=== PATIENT | female | born 1930 | race Caucasian/White ===

== ENCOUNTER 2017-05-23 12:06 | Inpatient (IN) | payer MEDICARE, MEDICAID ==
--- NOTE | 2017-05-22 20:00 | NUR ---
RECEIVED PATIENT ASLEEP IN BED BUT EASILY AROUSABLE. NO S/S OF PAIN OR ACUTE DISTRESS NOTED ON ASSESSMENT.SAFETY AND COMFORT MEASURES IN PLACE. WILL CONTINUE TO MONITOR PATIENT Addendum: 05/24/17 at 0148 by IVORY HERNANDEZ RN CORRECT DATE IS 05/23/17
[~2017-05-23] VITALS: Ht 162.6 cm; Wt 54.4 kg
--- NOTE | 2017-05-23 12:39 | NUR ---
EKG/SALINE LOCK/LABS/CXR DONE, MONITOR SHOWS NSR, PT POSITIONED FOR COMFORT.
[2017-05-23] MEDS ORDERED: GABA300C PO (12:48)
[2017-05-23] MEDS ORDERED: MULT1TAB73 PO (12:48)
[2017-05-23] MEDS ORDERED: DICL100G16 TP (12:48)
[2017-05-23] MEDS ORDERED: POLY17PO4 PO (12:48)
[2017-05-23] MEDS ORDERED: ASPI81TA31 PO (12:48)
[2017-05-23] MEDS ORDERED: LORA-258 PO (12:48)
[2017-05-23] MEDS ORDERED: DOCU100C36 PO (12:48)
[2017-05-23] MEDS ORDERED: DEXT15DR6 EACHEYE (12:48)
[2017-05-23] MEDS ORDERED: METO25TA6 PO (12:48)
[2017-05-23] MEDS ORDERED: LIDOCAINE OINT 5% TOP (12:48)
[2017-05-23] MEDS ORDERED: HYDR-3326 PO (12:48)
[2017-05-23] MEDS ORDERED: DONE10TA44 PO (12:48)
[2017-05-23] MEDS ORDERED: ACET-2154 PO ×2 (12:48)
[2017-05-23 13:01] LABS: BASOPHILS # (AUTO) 0.1 K/uL (0.0-8.0); BASOPHILS % (AUTO) 0.7 % (0.0-2.0); EOSINOPHILS # (AUTO) 0.1 K/uL (0.0-0.7); EOSINOPHILS % (AUTO) 0.6 % (0.0-7.0); HEMATOCRIT 46.8 % (31.2-41.9); HEMOGLOBIN 15.2 g/dL (10.9-14.3); LYMPHOCYTES # (AUTO) 2.2 K/uL (20.0-40.0); LYMPHOCYTES % (AUTO) 16.8 % (20.5-51.5); MEAN CORPUSCULAR HEMOGLOBIN 31.8 uug (24.7-32.8); MEAN CORPUSCULAR HGB CONC 32 g/dL (32.3-35.6); MEAN CORPUSCULAR VOLUME 98.1 fL (75.5-95.3); MONOCYTES # (AUTO) 0.7 K/uL (2.0-10.0); MONOCYTES % (AUTO) 5.6 % (0.0-11.0); NEUTROPHILS % (AUTO) 76.3 % (38.5-71.5); PLATELET COUNT (AUTO) 197 K/uL (179-408); RED BLOOD CELL COUNT(AUTO) 4.78 MIL/uL (3.63-4.92); WHITE BLOOD COUNT (AUTO) 13.1 K/uL (3.8-11.8)
[2017-05-23 13:15] LABS: ALANINE AMINOTRANSFERASE 42 U/L (14-59); ALKALINE PHOSPHATASE 137 U/L (50-136); ASPARTATE AMINOTRANSFERASE 23 U/L (15-37); BILIRUBIN,DIRECT 0.1 mg/dL (0.0-0.2); BILIRUBIN,TOTAL 0.5 mg/dL (0.2-1.0); CARBON DIOXIDE 29 mmol/L (21-32); CHLORIDE 122 mmol/L (98-107); GLUCOSE 119 mg/dL (74-106); LIPASE 1386 U/L (73-393); POTASSIUM 3.8 mmol/L (3.5-5.1); TOTAL PROTEIN, SERUM 8.3 g/dL (6.4-8.2); UREA NITROGEN, BLOOD 47 mg/dL (7-18)
[2017-05-23] MEDS ORDERED: IV D5W 1000ML 1,000 ML IV ONE (14:00)
--- NOTE | 2017-05-23 15:16 | NUR ---
SBAR REPORT TO MTTDATW RN, PT TO RM 214 VIA RICHELLE JONES LIST, ADMIT ORDER, MRSA DONE. ELIDIA LOYOLA TO COMPLETE 1L D5W INFUSION.
--- NOTE | 2017-05-23 15:30 | NUR ---
PATIENT TRANSFERRED FROM ER ONTO MED-SURG FLOOR BY LISA IN STABLE CONDITION, VITAL SIGNS STABLE. REFRIGERATION ENGINEER PLACED ON PATIENT. BELONGINGS CHECKLIST PLACED, ID BAND PLACED. NO WOUNDS PRESENT. PATIENT A/OX1. DEMENTED, APPEARS WEAK, LETHARGIC. COMPLETED FLUIDS STARTED IN ER (500 ML BAG OF [id number] BOLUS). [facility] WILL BE CALLED FOR ORDERS.
[2017-05-23 16:00] VITALS: BP 110/90
[2017-05-23] MEDS ORDERED: HOME MED MISCELLANEOUS TP PRN (19:00)
[2017-05-23] MEDS ORDERED: HYDROCODONE/APAP 5-325MG TABLET PO PRN (19:00)
[2017-05-23] MEDS ORDERED: MIRALAX 17 GM POWD.PACK PO PRN (19:00)
[2017-05-23] MEDS: LORAZEPAM 0.5 MG TABLET PO SCH (19:30)
[2017-05-23 20:00] VITALS: BP 107/64
[2017-05-23] MEDS: DONEPEZIL 10 MG TABLET PO SCH (20:20)
[2017-05-23] MEDS: METOPROLOL TARTRATE 25 MG TABLET PO SCH (20:21)
[2017-05-23] MEDS: LIDOCAINE 5% OINT 35.44 GM TUBE TOP SCH (20:26)
[2017-05-23] MEDS: IV D5 1/2 NS 1000 ML 1,000 ML IV PRN (20:35)
[2017-05-24] VITALS: BP 117/51
[2017-05-24 04:00] VITALS: BP 130/50
[2017-05-24] MEDS: IV D5 1/2 NS 1000 ML 1,000 ML IV PRN (05:13)
--- NOTE | 2017-05-24 06:27 | NUR ---
PATIENT SLEEP WELL THROUGH THE SHIFT. NO S/S OF PAIN OR ACUTE DISTRESS NOTED ON THIS SHIFT, NO SIGNIFICANT CHANGES IN STATUS. PATIENT ON TELE WITH SINUS RHYTHM AT 72 BPM. SAFETY MEASURES MAINTAINED AT ALL TIMES
[2017-05-24 06:34] LABS: BASOPHILS % (AUTO) 0.3 % (0.0-2.0); EOSINOPHILS # (AUTO) 0.2 K/uL (0.0-0.7); EOSINOPHILS % (AUTO) 2.1 % (0.0-7.0); HEMATOCRIT 40.3 % (31.2-41.9); HEMOGLOBIN 13.3 g/dL (10.9-14.3); LYMPHOCYTES # (AUTO) 1.7 K/uL (20.0-40.0); LYMPHOCYTES % (AUTO) 18.5 % (20.5-51.5); MEAN CORPUSCULAR HEMOGLOBIN 31.8 uug (24.7-32.8); MEAN CORPUSCULAR HGB CONC 33 g/dL (32.3-35.6); MEAN CORPUSCULAR VOLUME 96.6 fL (75.5-95.3); MONOCYTES # (AUTO) 0.4 K/uL (2.0-10.0); MONOCYTES % (AUTO) 4.5 % (0.0-11.0); NEUTROPHILS # (AUTO) 6.9 K/uL (1.8-8.9); NEUTROPHILS % (AUTO) 74.6 % (38.5-71.5); PLATELET COUNT (AUTO) 155 K/uL (179-408); RED BLOOD CELL COUNT(AUTO) 4.17 MIL/uL (3.63-4.92); WHITE BLOOD COUNT (AUTO) 9.2 K/uL (3.8-11.8)
[2017-05-24 06:46] LABS: CARBON DIOXIDE 28 mmol/L (21-32); CHLORIDE 116 mmol/L (98-107); CREATININE 0.7 mg/dL (0.6-1.3); GLUCOSE 111 mg/dL (74-106); MAGNESIUM 2.5 mg/dL (1.8-2.4); PHOSPHOROUS 2.5 mg/dL (2.5-4.9); POTASSIUM 3.1 mmol/L (3.5-5.1); UREA NITROGEN, BLOOD 29 mg/dL (7-18)
--- NOTE | 2017-05-24 07:35 | NUR ---
RECEIVED SHIFT REPORT FROM WASTEWATER TREATMENT PLANT INSTRUCTOR NURSE. PATIENT RESTING COMFORTABLY IN BED AT THIS TIME, NO S/S OF DISTRESS, STABLE CONDITION. IVF RUNNING. PATIENT APPEARS LETHARGIC, CONFUSED, DEMENTED. REORIENTATION WILL BE PROVIDED NEEDED THROUGHOUT SHIFT. BED IN LOCKED/LOW POSITION, SIDE RAILS UP X2, BED ALARM ON, CALL LIGHT WITHIN REACH. WILL MONITOR ELECTROLYTE/FLUID LEVELS. WILL MONITOR PATIENT THROUGHOUT SHIFT.
[2017-05-24] MEDS: ACETAMINOPHEN 325 MG TABLET PO SCH ×3 (08:41→17:42)
[2017-05-24] MEDS: MULTIVITAMINS,THERAPEUTIC TABLET PO SCH (08:41)
[2017-05-24] MEDS: ASPIRIN 81 MG TAB.CHEW PO SCH (08:41)
[2017-05-24] MEDS: DOCUSATE SODIUM 100 MG CAPSULE PO SCH ×2 (08:41→17:42)
[2017-05-24] MEDS: METOPROLOL TARTRATE 25 MG TABLET PO SCH ×2 (08:42→20:07)
[2017-05-24] MEDS: POLYVINYL ALCOHOL OPHT DROPS 15 ML BOTTLE EACHEYE SCH ×2 (08:43→17:42)
[2017-05-24] MEDS: GABAPENTIN 300 MG CAPSULE PO SCH ×3 (08:43→17:42)
[2017-05-24 08:57] VITALS: BP 139/59
[2017-05-24] MEDS: LIDOCAINE 5% OINT 35.44 GM TUBE TOP SCH ×2 (09:00→20:09)
[2017-05-24 11:51] VITALS: BP 109/43
[2017-05-24] MEDS: POTASSIUM CHLORIDE 40 MEQ in IV D5 1/2 NS 1000 ML 1,000 ML IV PRN ×2 (12:14→19:58)
[2017-05-24 15:33] VITALS: BP 93/52
--- NOTE | 2017-05-24 19:49 | NUR ---
REPORT GIVEN TO SUPERVISOR BLAST FURNACE AUXILIARIES NURSE. PATIENT HAS BEEN STABLE THROUGHOUT SHIFT. CONTINUES TO BE DEMENTED/CONFUSED. IVF RUNNING. NEW ORDER FOR IVF PLACED BY MD EARLIER ON SHIFT. KCI 40 MEQ D51/2NS @ 120CC/HR. VITAL SIGNS WNL THROUGHOUT SHIFT. AFEBRILE. NO SIGNS OF RESPIRATORY DISTRESS. SKIN INTACT. CALL LIGHT WITHIN REACH.
[2017-05-24 20:00] VITALS: BP 113/38
[2017-05-24] MEDS: ACETAMINOPHEN 325 MG TABLET PO PRN (20:07)
[2017-05-24] MEDS: LORAZEPAM 0.5 MG TABLET PO SCH (20:08)
[2017-05-24] MEDS: DONEPEZIL 10 MG TABLET PO SCH (20:08)
--- NOTE | 2017-05-24 21:00 | NUR ---
Received patient pleasantly confused responsive verbally, no SOB denies chest pain. Sinus rhythm on the monitor. Temp 99.2 F. Tylenol 650 mg po given, patient tolerated crushed meds w/ apple sauce. Cooling measures applied. Will continue to monitor.
--- NOTE | 2017-05-24 23:59 | NUR ---
Patient resting comfortably. Temp 100.3 F, Dr. Carrillo notified, & received orders. Blood culture x 2 was ordered.
[2017-05-25] VITALS: BP 119/47
--- NOTE | 2017-05-25 02:00 | NUR ---
Afebrile at this time 98.6 F
[2017-05-25 04:00] VITALS: BP 110/43
[2017-05-25] MEDS: POTASSIUM CHLORIDE 40 MEQ in IV D5 1/2 NS 1000 ML 1,000 ML IV PRN ×2 (05:10→18:32)
[2017-05-25 06:53] LABS: CARBON DIOXIDE 24 mmol/L (21-32); CHLORIDE 114 mmol/L (98-107); CREATININE 0.8 mg/dL (0.6-1.3); GLUCOSE 127 mg/dL (74-106); MAGNESIUM 2.2 mg/dL (1.8-2.4); PHOSPHOROUS 1.9 mg/dL (2.5-4.9); POTASSIUM 4.4 mmol/L (3.5-5.1); UREA NITROGEN, BLOOD 21 mg/dL (7-18)
--- NOTE | 2017-05-25 07:00 | NUR ---
Remains afebrile, no acute resp distress. Vital signs WNL Sinus rhythm on the monitor.
[2017-05-25] MEDS: MULTIVITAMINS,THERAPEUTIC TABLET PO SCH (08:42)
[2017-05-25] MEDS: ASPIRIN 81 MG TAB.CHEW PO SCH (08:42)
[2017-05-25] MEDS: DOCUSATE SODIUM 100 MG CAPSULE PO SCH ×2 (08:42→16:03)
[2017-05-25] MEDS: ACETAMINOPHEN 325 MG TABLET PO SCH ×3 (08:42→16:03)
[2017-05-25] MEDS: POLYVINYL ALCOHOL OPHT DROPS 15 ML BOTTLE EACHEYE SCH ×2 (08:42→16:03)
[2017-05-25] MEDS: GABAPENTIN 300 MG CAPSULE PO SCH ×3 (08:42→16:03)
[2017-05-25] MEDS: LIDOCAINE 5% OINT 35.44 GM TUBE TOP SCH ×2 (08:46→20:42)
[2017-05-25] MEDS: METOPROLOL TARTRATE 25 MG TABLET PO SCH ×2 (08:46→20:41)
[2017-05-25 09:41] LABS: BASOPHILS % (AUTO) 0.1 % (0.0-2.0); EOSINOPHILS % (AUTO) 0.3 % (0.0-7.0); HEMATOCRIT 39.1 % (31.2-41.9); HEMOGLOBIN 12.8 g/dL (10.9-14.3); LYMPHOCYTES # (AUTO) 0.9 K/uL (20.0-40.0); LYMPHOCYTES % (AUTO) 5.9 % (20.5-51.5); MEAN CORPUSCULAR HEMOGLOBIN 31.3 uug (24.7-32.8); MEAN CORPUSCULAR HGB CONC 33 g/dL (32.3-35.6); MEAN CORPUSCULAR VOLUME 95.9 fL (75.5-95.3); MONOCYTES # (AUTO) 0.6 K/uL (2.0-10.0); MONOCYTES % (AUTO) 3.5 % (0.0-11.0); NEUTROPHILS # (AUTO) 14.3 K/uL (1.8-8.9); NEUTROPHILS % (AUTO) 90.2 % (38.5-71.5); PLATELET COUNT (AUTO) 127 K/uL (179-408); RED BLOOD CELL COUNT(AUTO) 4.08 MIL/uL (3.63-4.92)
[2017-05-25 09:42] LABS: WHITE BLOOD COUNT (AUTO) 15.9 K/uL (3.8-11.8)
[2017-05-25] MEDS ORDERED: SODIUM PHOSPHATE MM 5 MM in IV DEXTROSE 5% 100 ML IV ONE (10:45)
[2017-05-25] MEDS: LEVOFLOXACIN 500 MG/D5W 500 MG in PREMIXED 1 EACH IV SCH (11:43)
[2017-05-25 11:57] VITALS: BP 92/40
[2017-05-25 16:13] VITALS: BP 97/44
--- NOTE | 2017-05-25 18:36 | NUR ---
Pt remained afebrile throughout shift. Restarted IV on right forearm #20 . Call light is within reach. Pt was started new abx earlier secondary to elevated wbc. Pt has been non verbal throughout shift. Pt has poor appetite .
[2017-05-25 20:39] VITALS: BP 126/45
[2017-05-25] MEDS: DONEPEZIL 10 MG TABLET PO SCH (20:41)
[2017-05-25] MEDS: LORAZEPAM 0.5 MG TABLET PO SCH (20:41)
[2017-05-26 00:38] VITALS: BP 114/44
[2017-05-26] MEDS: ACETAMINOPHEN 325 MG TABLET PO PRN (02:45)
[2017-05-26] MEDS: POTASSIUM CHLORIDE 40 MEQ in IV D5 1/2 NS 1000 ML 1,000 ML IV PRN ×3 (02:52→23:07)
--- NOTE | 2017-05-26 03:10 | NUR ---
patient turn and repositioning,still with low fever 99.5-99.7, cooling measure and Tylenol given,crushed meds,aspiration precautions,patient lethargy,able to follow simple instructions,HOB elevated,NSR on monitor.
[2017-05-26 04:00] VITALS: BP 126/43
[2017-05-26 07:04] LABS: ALANINE AMINOTRANSFERASE 40 U/L (14-59); ALKALINE PHOSPHATASE 112 U/L (50-136); ASPARTATE AMINOTRANSFERASE 28 U/L (15-37); BILIRUBIN,TOTAL 0.3 mg/dL (0.2-1.0); CARBON DIOXIDE 24 mmol/L (21-32); CHLORIDE 114 mmol/L (98-107); CREATININE 0.7 mg/dL (0.6-1.3); GLUCOSE 139 mg/dL (74-106); MAGNESIUM 2.1 mg/dL (1.8-2.4); PHOSPHOROUS 1.9 mg/dL (2.5-4.9); POTASSIUM 4.4 mmol/L (3.5-5.1); UREA NITROGEN, BLOOD 10 mg/dL (7-18)
[2017-05-26 07:54] LABS: BASOPHILS # (AUTO) 0.1 K/uL (0.0-8.0); BASOPHILS % (AUTO) 0.6 % (0.0-2.0); EOSINOPHILS # (AUTO) 0.3 K/uL (0.0-0.7); EOSINOPHILS % (AUTO) 2.6 % (0.0-7.0); HEMOGLOBIN 11.7 g/dL (10.9-14.3); LYMPHOCYTES # (AUTO) 1.9 K/uL (20.0-40.0); LYMPHOCYTES % (AUTO) 14.5 % (20.5-51.5); MEAN CORPUSCULAR HEMOGLOBIN 31.9 uug (24.7-32.8); MEAN CORPUSCULAR HGB CONC 34 g/dL (32.3-35.6); MONOCYTES # (AUTO) 0.4 K/uL (2.0-10.0); MONOCYTES % (AUTO) 3.4 % (0.0-11.0); NEUTROPHILS # (AUTO) 10.3 K/uL (1.8-8.9); NEUTROPHILS % (AUTO) 78.9 % (38.5-71.5); PLATELET COUNT (AUTO) 128 K/uL (179-408); RED BLOOD CELL COUNT(AUTO) 3.67 MIL/uL (3.63-4.92)
[2017-05-26 07:59] LABS: HEMATOCRIT 34.9 % (31.2-41.9)
[2017-05-26 08:06] LABS: VIT D, 25-HYDROXY 16.8 ng/mL (30.0-100.0)
[2017-05-26] MEDS ORDERED: SODIUM PHOSPHATE MM 7.5 MM in IV DEXTROSE 5% 100 ML IV ONE (09:00)
[2017-05-26] MEDS: GABAPENTIN 300 MG CAPSULE PO SCH ×3 (09:32→17:14)
[2017-05-26] MEDS: POLYVINYL ALCOHOL OPHT DROPS 15 ML BOTTLE EACHEYE SCH ×2 (09:32→17:14)
[2017-05-26] MEDS: ASPIRIN 81 MG TAB.CHEW PO SCH (09:32)
[2017-05-26] MEDS: LIDOCAINE 5% OINT 35.44 GM TUBE TOP SCH ×2 (09:33→21:09)
[2017-05-26] MEDS: ACETAMINOPHEN 325 MG TABLET PO SCH ×3 (09:33→17:14)
[2017-05-26] MEDS: MULTIVITAMINS,THERAPEUTIC TABLET PO SCH (09:33)
[2017-05-26] MEDS: METOPROLOL TARTRATE 25 MG TABLET PO SCH ×2 (09:33→21:09)
[2017-05-26] MEDS: DOCUSATE SODIUM 100 MG CAPSULE PO SCH ×2 (09:33→17:14)
[2017-05-26 11:10] VITALS: BP 116/49
[2017-05-26 12:07] LABS: A/G RATIO 0.9 (0.7-1.7); ALBUMIN 3.1 g/dL (2.9-4.4); ALPHA-1-GLOBULIN 0.1 g/dL (0.0-0.4); ALPHA-2-GLOBULIN 0.8 g/dL (0.4-1.0); BETA GLOBULIN 1.1 g/dL (0.7-1.3); GAMMA GLOBULIN 1.4 g/dL (0.4-1.8); GLOBULIN, TOTAL 3.4 g/dL (2.2-3.9); M-SPIKE 1.1 g/dL (Not Observed)
[2017-05-26] MEDS: LEVOFLOXACIN 500 MG/D5W 500 MG in PREMIXED 1 EACH IV SCH (12:10)
[2017-05-26 15:12] VITALS: BP 118/55
[2017-05-26] MEDS: LORAZEPAM 0.5 MG TABLET PO SCH (19:30)
--- NOTE | 2017-05-26 20:00 | NUR ---
Noted to be resting in bed. Air mattress applied. Will reposition throughout shift. No distress noted at this time. Vital signs WNL. Bed in low, locked position. Bed alarm on. Call light within reach.
[2017-05-26 20:19] VITALS: BP 115/44
[2017-05-26] MEDS: DONEPEZIL 10 MG TABLET PO SCH (21:09)
[2017-05-27 04:00] VITALS: BP 149/59
--- NOTE | 2017-05-27 05:43 | NUR ---
No distress throughout the night. Repositioned, back care and arleen care provided. Vital signs WNL. Will continue to monitor.
[2017-05-27 07:49] LABS: BASOPHILS % (AUTO) 0.4 % (0.0-2.0); EOSINOPHILS # (AUTO) 0.5 K/uL (0.0-0.7); EOSINOPHILS % (AUTO) 4.3 % (0.0-7.0); HEMATOCRIT 38.8 % (31.2-41.9); HEMOGLOBIN 13.1 g/dL (10.9-14.3); LYMPHOCYTES # (AUTO) 1.3 K/uL (20.0-40.0); LYMPHOCYTES % (AUTO) 12.1 % (20.5-51.5); MEAN CORPUSCULAR HEMOGLOBIN 32.2 uug (24.7-32.8); MEAN CORPUSCULAR HGB CONC 34 g/dL (32.3-35.6); MEAN CORPUSCULAR VOLUME 95.2 fL (75.5-95.3); MONOCYTES # (AUTO) 0.7 K/uL (2.0-10.0); MONOCYTES % (AUTO) 6.3 % (0.0-11.0); NEUTROPHILS # (AUTO) 8.3 K/uL (1.8-8.9); NEUTROPHILS % (AUTO) 76.9 % (38.5-71.5); PLATELET COUNT (AUTO) 130 K/uL (179-408); RED BLOOD CELL COUNT(AUTO) 4.08 MIL/uL (3.63-4.92); WHITE BLOOD COUNT (AUTO) 10.9 K/uL (3.8-11.8)
[2017-05-27] MEDS: POTASSIUM CHLORIDE 40 MEQ in IV D5 1/2 NS 1000 ML 1,000 ML IV PRN (07:49)
[2017-05-27] MEDS: ACETAMINOPHEN 325 MG TABLET PO SCH ×2 (09:27→12:51)
[2017-05-27] MEDS: GABAPENTIN 300 MG CAPSULE PO SCH ×2 (09:27→12:51)
[2017-05-27] MEDS: DOCUSATE SODIUM 100 MG CAPSULE PO SCH (09:28)
[2017-05-27] MEDS: METOPROLOL TARTRATE 25 MG TABLET PO SCH (09:28)
[2017-05-27] MEDS: ASPIRIN 81 MG TAB.CHEW PO SCH (09:28)
[2017-05-27] MEDS: MULTIVITAMINS,THERAPEUTIC TABLET PO SCH (09:28)
[2017-05-27] MEDS: LIDOCAINE 5% OINT 35.44 GM TUBE TOP SCH (09:29)
[2017-05-27] MEDS: POLYVINYL ALCOHOL OPHT DROPS 15 ML BOTTLE EACHEYE SCH (09:29)
--- NOTE | 2017-05-27 10:30 | NUR ---
Report given to MILLA Wade at [facility]. Will be transferred later today. 1615 - Report given to Ambulance sole tacker, transferred via ambulance to [facility].
[2017-05-27 11:33] VITALS: BP 114/69
[2017-05-27 11:38] LABS: ALANINE AMINOTRANSFERASE 39 U/L (14-59); ALKALINE PHOSPHATASE 144 U/L (50-136); ASPARTATE AMINOTRANSFERASE 26 U/L (15-37); BILIRUBIN,TOTAL 0.2 mg/dL (0.2-1.0); CARBON DIOXIDE 28 mmol/L (21-32); CHLORIDE 107 mmol/L (98-107); CREATININE 0.8 mg/dL (0.6-1.3); GLUCOSE 107 mg/dL (74-106); MAGNESIUM 2.2 mg/dL (1.8-2.4); PHOSPHOROUS 2.6 mg/dL (2.5-4.9); POTASSIUM 4.7 mmol/L (3.5-5.1); TOTAL PROTEIN, SERUM 6.9 g/dL (6.4-8.2); UREA NITROGEN, BLOOD 8 mg/dL (7-18)
[2017-05-27 13:07] LABS: CALCITRIOL VIT D,1,25 DIHYDROX 29.9 pg/mL (19.9-79.3)
[2017-05-27 15:38] VITALS: BP 103/47
== END 2017-05-27 16:00 | DRG 871 ==
LOC: ER 12:06 → TELE 15:04 → MED 05-26 13:50
PROVIDERS: ADMIT Internal Medicine; ATTEND Internal Medicine
DX: A41.9 Sepsis, unspecified organism (principal); G92 Toxic encephalopathy; K85.90 Acute pancreatitis without necrosis or infection, unspecified; J15.9 Unspecified bacterial pneumonia; E87.0 Hyperosmolality and hypernatremia; D89.2 Hypergammaglobulinemia, unspecified; E88.81 Metabolic syndrome and other insulin resistance; G62.9 Polyneuropathy, unspecified; E86.0 Dehydration; E83.52 Hypercalcemia; G30.9 Alzheimer's disease, unspecified; F02.80 Dementia in other diseases classified elsewhere, unspecified severity, without behavioral disturbance, psychotic disturbance, mood disturbance, and anxiety; Z86.73 Personal history of transient ischemic attack (TIA), and cerebral infarction without residual deficits; Z66 Do not resuscitate; I73.9 Peripheral vascular disease, unspecified; I10 Essential (primary) hypertension; Z86.718 Personal history of other venous thrombosis and embolism; I87.2 Venous insufficiency (chronic) (peripheral)
CPT/HCPCS: 36415; 70030-TC; 71045; 82306; 82652; 83690; 83735; 83970; 84100; 84155; 84165; 84443; 85025; 87040; 93005; A4663; J1956; J3480; J3490; J7042; J7060

== ENCOUNTER 2019-08-11 12:43 | Inpatient (IN) | payer MEDICARE, MEDICAID ==
[~2019-08-11] VITALS: Ht 167.6 cm; Wt 59.9 kg
[~2019-08-11 12:43] MED LIST: ACET-2154 PO; ASPI81TA31 PO; DEXT15DR6 EACHEYE; DICL100G16 TP; DOCU100C36 PO; DONE10TA44 PO; GABA300C PO; HYDR-3326 PO; LIDOCAINE OINT 5% TOP; LORA-258 PO; METO25TA6 PO; MULT-594 PO; POLY17PO4 PO
[2019-08-11] MEDS ORDERED: IV NORMAL SALINE 500 ML BAG IV ONE (13:00)
[2019-08-11] MEDS ORDERED: POLY15DR17 EACHEYE (13:16)
[2019-08-11] MEDS ORDERED: SODIUM CLORIDE (13:16)
[2019-08-11] MEDS ORDERED: DEXA6TAB6 PO (13:16)
[2019-08-11] MEDS ORDERED: ALBU8.5H8 INH (13:16)
[2019-08-11] MEDS ORDERED: IPRA0.2S48 NEB (13:16)
[2019-08-11] MEDS ORDERED: PIPE3.379 IV (13:16)
[2019-08-11] MEDS ORDERED: ACETAMINOPHEN 650 MG SUPP.RECT RC ONE ×2 (13:24→13:30)
[2019-08-11 13:55] LABS: CREATININE 0.7 mg/dL (0.6-1.3)
[2019-08-11 13:56] LABS: BASOPHILS % (AUTO) 0.3 % (0.0-2.0); HEMATOCRIT 35.5 % (31.2-41.9); HEMOGLOBIN 12.1 g/dL (10.9-14.3); LYMPHOCYTES # (AUTO) 0.6 K/uL (20.0-40.0); LYMPHOCYTES % (AUTO) 18.7 % (20.5-51.5); MEAN CORPUSCULAR HEMOGLOBIN 33.6 uug (24.7-32.8); MEAN CORPUSCULAR HGB CONC 34 g/dL (32.3-35.6); MEAN CORPUSCULAR VOLUME 98.4 fL (75.5-95.3); MONOCYTES # (AUTO) 0.4 K/uL (2.0-10.0); MONOCYTES % (AUTO) 11.9 % (0.0-11.0); NEUTROPHILS # (AUTO) 2.1 K/uL (1.8-8.9); NEUTROPHILS % (AUTO) 69.1 % (38.5-71.5); PLATELET COUNT (AUTO) 185 K/uL (179-408); RED BLOOD CELL COUNT(AUTO) 3.61 MIL/uL (3.63-4.92); WHITE BLOOD COUNT (AUTO) 3.1 K/uL (3.8-11.8)
[2019-08-11 14:07] LABS: POTASSIUM 2.6 mmol/L (3.5-5.1)
[2019-08-11 14:08] LABS: BILIRUBIN,DIRECT 0.2 mg/dL (0.0-0.2); BILIRUBIN,TOTAL 0.5 mg/dL (0.2-1.0); TOTAL PROTEIN, SERUM 7.1 g/dL (6.4-8.2)
[2019-08-11] MEDS: POTASSIUM CHLORIDE 50 ML IV SCH ×5 (14:15→23:05)
[2019-08-11] MEDS ORDERED: POTASSIUM CHLORIDE 100 ML ONE (14:16)
--- NOTE | 2019-08-11 14:50 | NUR ---
Perianal care done. One BM of soft brown stool noted. No pressure sores seen.
--- NOTE | 2019-08-11 16:11 | NUR ---
Another BM of small soft, brown stool seen, perianal care done.
[2019-08-11 17:41] VITALS: BP 149/55
--- NOTE | 2019-08-11 17:42 | NUR ---
received pt. resting in bed alert oriented to self. pt. appears in no distress. pt. is on 3 L saturating 93-95%. pt. does not have a cough. pt. does not have a fever. IV put in by ER in R hand 20 gauge intact patent saline lock. IV in L hand 20 gauge put in by [facility] here on admission. pt. has no open wounds/ skin issues seen. safety measures in place. call light within reach. will continue to monitor pt.
[2019-08-11] MEDS ORDERED: ONDANSETRON 4 MG/2 ML VIAL IV PRN (18:30)
[2019-08-11] MEDS ORDERED: ACETAMINOPHEN 325 MG TABLET PO PRN (18:30)
[2019-08-11] MEDS ORDERED: POTASSIUM CHLORIDE 50 ML IV SCH ×2 (18:45→20:00)
--- NOTE | 2019-08-11 20:00 | NUR ---
PATIENT RECEIVED INTO CARE, LAYING IN BED ASLEEP, RESTING COMFORTABLY. PATIENT HAS NO S/S OF ACUTE DISTRESS OR DISCOMFORT NOTED OR OBSERVED BY THIS NURSE. ALL SAFETY, FALL, ISOLATION, AND ASPIRATION PRECAUTIONS ARE IN PLACE. CALL LIGHT AND PERSONAL ITEM ARE WITHIN REACH AT ALL TIMES. WILL CONTINUE TO MONITOR AND ASSESS.
--- NOTE | 2019-08-11 20:30 | NUR ---
NOTIFIED BY PRECISION INSTRUMENT MAKER THAT PATIENT'S O2 SATURATION IS 87-88% WITH 3L/MIN OXYGEN VIA NC. THIS NURSE HELPED REPOSITION PATIENT AND INCREASED OXYGEN TO 4L WITH SLIGHT CHANGE IN O2 SATURATION 89% CHANGED NC TO SIMPLE MASK AT 3L/MIN AND OXYGEN SATURATION INCREASED TO 95% THIS NURSE WILL CONTINUE TO MONITOR AND ASSESS.
[2019-08-11 20:33] VITALS: BP 147/66
[2019-08-11 20:51] LABS: FERRITIN 471 ng/mL (8-252); LACTATE DEHYDROGENASE 371 U/L (81-234)
[2019-08-11] MEDS ORDERED: ACETAMINOPHEN 325 MG TABLET PO SCH (22:00)
[2019-08-11] MEDS ORDERED: PIPERACILLIN/TAZO/D5W 3.375 GM FROZEN IV SCH (22:00)
[2019-08-11] MEDS: METOPROLOL TARTRATE 25 MG TABLET PO SCH (22:08)
[2019-08-11] MEDS: GABAPENTIN 300 MG CAPSULE PO SCH (22:08)
[2019-08-11] MEDS: DONEPEZIL 10 MG TABLET PO SCH (22:08)
[2019-08-11] MEDS ORDERED: DEXAMETHASONE 4 MG TABLET PO ONE (22:30)
[2019-08-11] MEDS: ALBUTEROL SULFATE IH SCH (23:45)
[2019-08-12] VITALS: BP 154/62
[2019-08-12] MEDS ORDERED: DEXAMETHASONE SOD PHOSPHATE 4 MG INJ IV ONE
[2019-08-12] MEDS: POTASSIUM CHLORIDE 50 ML IV SCH (00:11)
[2019-08-12] MEDS: PIPERACILLIN/TAZOBACTAM/D5W 3.375 G in IV DEXTROSE 5% 50 ML IV SCH ×4 (01:19→22:00)
--- NOTE | 2019-08-12 04:17 | NUR ---
Switched patient back to NC at 3L/min. Will continue to monitor and assess oxygen saturation.
[2019-08-12 04:36] VITALS: BP 135/52
--- NOTE | 2019-08-12 06:00 | NUR ---
Patient slept throughout night with no s/s of acute distress or discomfort noted/observed by this nurse. Change from simple mask back to NC at 0417h reflects an O2 saturation at 93%. VS are WNL and patient is stable. HS medications were given with small bites of applesauce but pt is reluctant to take. All medications given as ordered and tolerated well, with no adverse side effects noted/observed by this nurse. All safety, fall, and isolation precautions remain in place. Call light and personal items remain within reach.
[2019-08-12 07:19] LABS: BASOPHILS % (AUTO) 0.4 % (0.0-2.0); EOSINOPHILS % (AUTO) 0.1 % (0.0-7.0); HEMATOCRIT 35.9 % (31.2-41.9); HEMOGLOBIN 12.2 g/dL (10.9-14.3); LYMPHOCYTES # (AUTO) 0.3 K/uL (20.0-40.0); LYMPHOCYTES % (AUTO) 11.4 % (20.5-51.5); MEAN CORPUSCULAR HEMOGLOBIN 33.5 uug (24.7-32.8); MEAN CORPUSCULAR HGB CONC 34 g/dL (32.3-35.6); MEAN CORPUSCULAR VOLUME 98.5 fL (75.5-95.3); MONOCYTES # (AUTO) 0.2 K/uL (2.0-10.0); MONOCYTES % (AUTO) 5.6 % (0.0-11.0); NEUTROPHILS # (AUTO) 2.4 K/uL (1.8-8.9); NEUTROPHILS % (AUTO) 82.5 % (38.5-71.5); PLATELET COUNT (AUTO) 176 K/uL (179-408); RED BLOOD CELL COUNT(AUTO) 3.64 MIL/uL (3.63-4.92)
[2019-08-12 07:29] LABS: BILIRUBIN,TOTAL 0.6 mg/dL (0.2-1.0); CREATININE 0.7 mg/dL (0.6-1.3); MAGNESIUM 2.5 mg/dL (1.8-2.4); POTASSIUM 3.4 mmol/L (3.5-5.1); TOTAL PROTEIN, SERUM 7.6 g/dL (6.4-8.2)
[2019-08-12] MEDS: ALBUTEROL SULFATE IH SCH ×3 (07:35→23:38)
[2019-08-12] MEDS: DOCUSATE SODIUM 100 MG CAPSULE PO SCH ×2 (08:43→20:45)
[2019-08-12] MEDS: DEXAMETHASONE 4 MG TABLET PO SCH (08:43)
[2019-08-12] MEDS: GABAPENTIN 300 MG CAPSULE PO SCH ×3 (08:43→20:46)
[2019-08-12] MEDS: ASPIRIN 81 MG TAB.CHEW PO SCH (08:43)
[2019-08-12] MEDS ORDERED: DEXAMETHASONE 6 MG PO SCH (09:00)
[2019-08-12] MEDS ORDERED: ACETAMINOPHEN 325 MG TABLET PO SCH (09:00)
[2019-08-12] MEDS: METOPROLOL TARTRATE 25 MG TABLET PO SCH ×2 (09:03→20:45)
--- NOTE | 2019-08-12 09:09 | NUR ---
received pt. resting in bed alert oriented to self. pt. is on 3 L saturating 95%. pt. does not have a cough. pt. is afebrile. Both IVs are intact patent. R hand 20 gauge running prescribed fluid. L hand intact patent saline lock. safety measures in place. call light within reach. will continue to monitor pt.
[2019-08-12 09:11] LABS: ABG BASE EXCESS 0.6 mmol/L; ABG HCO3 23.9 mmol/L; ABG PCO2 33.9 mmHg (35.0-45.0); ABG PH 7.466 (7.350-7.450); ABG PO2 76.5 mmHg (75.0-100.0); ABG SITE RIGHT RADIAL; ABG TOTAL HEMOGLOBIN 11.9 G/dL (12.0-16.0); COHb 0.9 % (0.5-1.5); MetHb 0.3 % (0.0-1.5); O2Hb 93.6 % (94.0-97.0); VENT MODE Nasal Cannula
[2019-08-12] MEDS: ENOXAPARIN SODIUM 40 MG/0.4 ML DISP.SYRIN SQ SCH (11:48)
[2019-08-12 12:00] VITALS: BP 136/67
[2019-08-12] MEDS ORDERED: POTASSIUM CHLORIDE 20 MEQ TAB.PRT.SR PO ONE (13:30)
[2019-08-12] MEDS ORDERED: Z GUARD REMEDY PASTE 57 GM TUBE TOP PRN (14:15)
[2019-08-12] MEDS ORDERED: IPRATROPIUM BROMIDE 0.5 MG/2.5 ML NEBU NEB SCH (15:30)
[2019-08-12 16:00] VITALS: BP 146/84
--- NOTE | 2019-08-12 19:11 | NUR ---
covid test done will bring downstairs
--- NOTE | 2019-08-12 19:27 | NUR ---
EXPERIMENTAL CONVALESCENT PLASMA ORDER PLACED BY ID FOR THIS PATIENT. PER LAB, NEEDS TO COMPLETE INVESTIGATIONAL NEW DRUG APPLICATION. THIS NURSE CONTACTED MD BAILON TO ADVISE, EXPLAINED NOT AVAILABLE, THIS NURSE ADVISED WILL TRY LANG RAMÍREZ. THIS NURSE CONTACTED LANG QUACH TO ADVISE NEED OF SIGNATURE FOR APPLICATION. LANG RAMÍREZ STATED SHE OR MD BURNETTE WILL BE IN TOMORROW MORNING TO SIGN.
--- NOTE | 2019-08-12 20:00 | NUR ---
PATIENT RECEIVED INTO CARE, LAYING IN BED, RESTING COMFORTABLY. PATIENT IS AO X1 AND NON-VERBAL HOWEVER, THERE ARE NO S/S OF ACUTE DISTRESS OR DISCOMFORT NOTED/OBSERVED BY THIS NURSE. ALL SAFETY, FALL, AND ISOLATION PRECAUTIONS ARE IN PLACE. CALL LIGHT AND PERSONAL ITEMS ARE WITHIN REACH AT ALL TIMES. WILL CONTINUE TO MONITOR AND ASSESS.
--- NOTE | 2019-08-12 20:22 | NUR ---
PER MD ORDERS AND REPORT RECEIVED FROM AM NURSE, PATIENT IS NPO DT SWALLOW EVALUATION FAILURE. ORDER PLACED BY THIS NURSE.
[2019-08-12 20:30] VITALS: BP 148/67
[2019-08-12] MEDS: DONEPEZIL 10 MG TABLET PO SCH (20:45)
[2019-08-13 00:18] VITALS: BP 141/48
[2019-08-13 04:24] VITALS: BP 141/54
[2019-08-13] MEDS: PIPERACILLIN/TAZOBACTAM/D5W 3.375 G in IV DEXTROSE 5% 50 ML IV SCH ×3 (05:22→22:44)
--- NOTE | 2019-08-13 06:00 | NUR ---
PATIENT SLEPT THROUGHOUT NIGHT WITH NO S/S OF ACUTE DISTRESS OR DISCOMFORT NOTICED OR OBSERVED BY THIS NURSE. PT EXPERIENCED PERIODS OF BRADYCARDIA THAT APPEARED TO COINCIDE WITH EPISODES OF SLEEP APNEA. THIS NURSE ASSESSED PT AT BEDSIDE EACH TIME, WITH PT AROUSABLE TO NAME AND TOUCH AND VS TAKEN, WHICH WERE WNL EACH TIME. ALL SAFETY, FALL, AND ISOLATION PRECAUTIONS REMAIN IN PLACE. CALL LIGHT AND PERSONAL ITEMS REMAIN WITHIN REACH.
[2019-08-13] MEDS: ALBUTEROL SULFATE IH SCH ×3 (07:54→23:07)
[2019-08-13] MEDS: GABAPENTIN 300 MG CAPSULE PO SCH ×3 (08:14→21:21)
[2019-08-13] MEDS: DEXAMETHASONE 4 MG TABLET PO SCH (08:14)
[2019-08-13] MEDS: DOCUSATE SODIUM 100 MG CAPSULE PO SCH ×2 (08:14→21:21)
[2019-08-13] MEDS: ASPIRIN 81 MG TAB.CHEW PO SCH (08:14)
[2019-08-13] MEDS: METOPROLOL TARTRATE 25 MG TABLET PO SCH (08:14)
[2019-08-13 09:34] VITALS: BP 153/58
[2019-08-13] MEDS ORDERED: hydrALAZINE HCL 20 MG/1 ML VIAL IV PRN (11:15)
[2019-08-13] MEDS: ENOXAPARIN SODIUM 40 MG/0.4 ML DISP.SYRIN SQ SCH (12:22)
[2019-08-13] MEDS: POTASSIUM CHLORIDE 50 ML IV SCH ×4 (12:40→17:07)
[2019-08-13 15:07] LABS: BASOPHILS % (AUTO) 0.4 % (0.0-2.0); EOSINOPHILS % (AUTO) 0.1 % (0.0-7.0); HEMATOCRIT 33.9 % (31.2-41.9); HEMOGLOBIN 11.6 g/dL (10.9-14.3); LYMPHOCYTES # (AUTO) 0.7 K/uL (20.0-40.0); LYMPHOCYTES % (AUTO) 8.3 % (20.5-51.5); MEAN CORPUSCULAR HEMOGLOBIN 33.6 uug (24.7-32.8); MEAN CORPUSCULAR HGB CONC 34 g/dL (32.3-35.6); MEAN CORPUSCULAR VOLUME 98.3 fL (75.5-95.3); MONOCYTES # (AUTO) 0.4 K/uL (2.0-10.0); NEUTROPHILS # (AUTO) 6.8 K/uL (1.8-8.9); NEUTROPHILS % (AUTO) 86.2 % (38.5-71.5); PLATELET COUNT (AUTO) 239 K/uL (179-408); RED BLOOD CELL COUNT(AUTO) 3.45 MIL/uL (3.63-4.92); WHITE BLOOD COUNT (AUTO) 7.8 K/uL (3.8-11.8)
[2019-08-13 15:17] LABS: CREATININE 0.7 mg/dL (0.6-1.3); MAGNESIUM 2.3 mg/dL (1.8-2.4); PHOSPHOROUS 2.2 mg/dL (2.5-4.9); POTASSIUM 3.1 mmol/L (3.5-5.1)
[2019-08-13 17:12] VITALS: BP 147/59
--- NOTE | 2019-08-13 19:38 | NUR ---
This nurse spoke with ID LANG Callahan and explained SENIOR GIS ANALYST/MD needs to speak with pt's son and explain procedure before RN can get consent. LANG Callahan advised she will call back for son's phone number.
--- NOTE | 2019-08-13 20:01 | NUR ---
Patient received into care, laying in bed, resting comfortably. Patient is alert/oriented x1 and responded to this nurse when her name was spoken. Pt has no s/s of acute distress or discomfort noted/observed by this nurse. All safety, fall, and isolation precautions are in place. Call light and personal items are within reach. Will continue to monitor and assess.
--- NOTE | 2019-08-13 20:15 | NUR ---
This nurse received a call from LANG Callahan who advised that she spoke with stepdaughter of pt, Jaren Queen, regarding convalescent plasma transfusion. Per GREENHOUSE TRANSPLANTER, daughter advised that pt has not had a good quality of life for 6 years and will talk with her about whether or not to go ahead with transfusion. Once they have decided, they will call [facility].
[2019-08-13 20:43] VITALS: BP 151/90
[2019-08-13] MEDS: DONEPEZIL 10 MG TABLET PO SCH (21:21)
[2019-08-13] MEDS: AMLODIPINE 5 MG TABLET PO SCH (21:31)
[2019-08-14 00:11] VITALS: BP 136/42
[2019-08-14] MEDS: PIPERACILLIN/TAZOBACTAM/D5W 3.375 G in IV DEXTROSE 5% 50 ML IV SCH ×2 (05:06→13:37)
--- NOTE | 2019-08-14 06:00 | NUR ---
Patient slept well throughout night with no s/s of acute distress or discomfort noted or observed by this nurse. All prescribed medications provided as ordered and tolerated well by patient, with no adverse side effects noted or observed by this nurse. Family was notified by LANG Callahan of plan for convalescent plasma transfusion to treat COVID+. Family will discuss and notify hospital of decision on whether or not to go ahead with transfusion. Required application has been signed by and folder with the application is with the lab. All nursing needs were met promptly and patient is warm, dry, and comfortable. All safety, fall, and isolation precautions remain in place. Call light and personal items remain within reach at all times.
[2019-08-14 06:14] VITALS: BP 147/54
--- NOTE | 2019-08-14 08:00 | NUR ---
Patient in bed, awake and verbally responsive. No signs of distress noted. On Oxygen at 2L via nasal canula, saturating 96%. Awaiting for covid 19 result. kept clean and comfortable, Will continue to monitor. Addendum: 08/14/19 at 1434 by REMEDIOS NGUYEN RN Charting not for this patient
[2019-08-14] MEDS: ALBUTEROL SULFATE IH SCH ×3 (08:26→23:58)
[2019-08-14 08:36] LABS: BASOPHILS % (AUTO) 0.1 % (0.0-2.0); EOSINOPHILS % (AUTO) 0.1 % (0.0-7.0); HEMATOCRIT 34.2 % (31.2-41.9); HEMOGLOBIN 11.5 g/dL (10.9-14.3); LYMPHOCYTES # (AUTO) 0.5 K/uL (20.0-40.0); MEAN CORPUSCULAR HEMOGLOBIN 33.4 uug (24.7-32.8); MEAN CORPUSCULAR HGB CONC 34 g/dL (32.3-35.6); MEAN CORPUSCULAR VOLUME 99.5 fL (75.5-95.3); MONOCYTES # (AUTO) 0.3 K/uL (2.0-10.0); MONOCYTES % (AUTO) 4.6 % (0.0-11.0); NEUTROPHILS # (AUTO) 5.8 K/uL (1.8-8.9); NEUTROPHILS % (AUTO) 88.2 % (38.5-71.5); PLATELET COUNT (AUTO) 248 K/uL (179-408); RED BLOOD CELL COUNT(AUTO) 3.43 MIL/uL (3.63-4.92); WHITE BLOOD COUNT (AUTO) 6.6 K/uL (3.8-11.8)
[2019-08-14] MEDS: ASPIRIN 81 MG TAB.CHEW PO SCH (08:38)
[2019-08-14] MEDS: DOCUSATE SODIUM 100 MG CAPSULE PO SCH ×2 (08:38→20:49)
[2019-08-14] MEDS: DEXAMETHASONE 4 MG TABLET PO SCH (08:39)
[2019-08-14] MEDS: GABAPENTIN 300 MG CAPSULE PO SCH ×3 (08:40→20:48)
[2019-08-14] MEDS: AMLODIPINE 5 MG TABLET PO SCH ×2 (08:40→20:49)
[2019-08-14 08:43] LABS: CREATININE 0.8 mg/dL (0.6-1.3); MAGNESIUM 2.4 mg/dL (1.8-2.4); PHOSPHOROUS 2.9 mg/dL (2.5-4.9); POTASSIUM 2.9 mmol/L (3.5-5.1)
--- NOTE | 2019-08-14 08:58 | NUR ---
received critical lab potassium 2.9. Dr anand in the unit and made aware.
[2019-08-14] MEDS: POTASSIUM CHLORIDE 50 ML IV SCH ×4 (09:26→12:30)
[2019-08-14] MEDS ORDERED: POTASSIUM CHLORIDE 20 MEQ POWDER PACKET PO ONE (09:30)
--- NOTE | 2019-08-14 10:30 | NUR ---
Received a call from [facility] and they want me to tell Sav CROFT to call them again regarding FFP that was Ordered for the patient, because they cannot decide right now.
[2019-08-14] MEDS: ENOXAPARIN SODIUM 40 MG/0.4 ML DISP.SYRIN SQ SCH (10:56)
[2019-08-14] MEDS: IV D5W 1000ML 1,000 ML IV PRN (11:51)
[2019-08-14 12:00] VITALS: BP 137/46
[2019-08-14 16:00] VITALS: BP 142/58
--- NOTE | 2019-08-14 18:44 | NUR ---
Patient in bed. No signs of distress noted. Saturating 99% on 2L via nasal canula. No signs of Pain or discomfort. Afebrile. Remains on contact and droplet Isolation for Covid 19. Proper PPE strictly Observed. Kept clean and comfortable. Will endorsed to Oncoming Nurse.
[2019-08-14 20:37] VITALS: BP 147/46
[2019-08-14] MEDS: DONEPEZIL 10 MG TABLET PO SCH (20:49)
[2019-08-15 01:25] VITALS: BP 130/97
[2019-08-15 05:50] VITALS: BP 150/60
--- NOTE | 2019-08-15 06:51 | NUR ---
END OF SHIFT REPORT Pt rested well in between care; no acute distress; needs attended; safety maintained; new IV to left wrist;
[2019-08-15] MEDS: ALBUTEROL SULFATE IH SCH ×3 (07:35→23:15)
[2019-08-15] MEDS: DOCUSATE SODIUM 100 MG CAPSULE PO SCH ×2 (08:42→20:37)
[2019-08-15] MEDS: GABAPENTIN 300 MG CAPSULE PO SCH ×3 (08:42→20:37)
[2019-08-15] MEDS: ASPIRIN 81 MG TAB.CHEW PO SCH (08:42)
[2019-08-15] MEDS: DEXAMETHASONE 4 MG TABLET PO SCH (08:43)
[2019-08-15] MEDS: AMLODIPINE 5 MG TABLET PO SCH ×2 (08:43→20:37)
--- NOTE | 2019-08-15 09:00 | NUR ---
PATIENT IS AWAKE CONFUSED AND DISORIENTED ALL NEEDS ANTICIPATED AND SATISFIED TURNED AND REPOSITIONED Q2H PATIENT IS COVID POSITIVE AND REMAINS ON ISOLATION.ON O2 WITH NO SOB AT THIS TIME TURNED AND REPOSITIONED Q2H MADE COMFORTABLE WILL CONTINUE TO OBSERVE.
[2019-08-15 10:18] LABS: BASOPHILS % (AUTO) 0.1 % (0.0-2.0); EOSINOPHILS % (AUTO) 0.1 % (0.0-7.0); HEMATOCRIT 33.2 % (31.2-41.9); HEMOGLOBIN 11.3 g/dL (10.9-14.3); LYMPHOCYTES # (AUTO) 0.8 K/uL (20.0-40.0); LYMPHOCYTES % (AUTO) 8.2 % (20.5-51.5); MEAN CORPUSCULAR HEMOGLOBIN 33.9 uug (24.7-32.8); MEAN CORPUSCULAR HGB CONC 34 g/dL (32.3-35.6); MEAN CORPUSCULAR VOLUME 99.3 fL (75.5-95.3); MONOCYTES # (AUTO) 0.3 K/uL (2.0-10.0); MONOCYTES % (AUTO) 2.6 % (0.0-11.0); NEUTROPHILS # (AUTO) 9.2 K/uL (1.8-8.9); PLATELET COUNT (AUTO) 270 K/uL (179-408); RED BLOOD CELL COUNT(AUTO) 3.34 MIL/uL (3.63-4.92); WHITE BLOOD COUNT (AUTO) 10.3 K/uL (3.8-11.8)
[2019-08-15 10:50] LABS: BILIRUBIN,TOTAL 0.6 mg/dL (0.2-1.0); CREATININE 0.6 mg/dL (0.6-1.3); MAGNESIUM 2.4 mg/dL (1.8-2.4); PHOSPHOROUS 2.3 mg/dL (2.5-4.9); POTASSIUM 3.2 mmol/L (3.5-5.1); TOTAL PROTEIN, SERUM 7.2 g/dL (6.4-8.2)
[2019-08-15] MEDS: ENOXAPARIN SODIUM 40 MG/0.4 ML DISP.SYRIN SQ SCH (11:54)
[2019-08-15 12:00] VITALS: BP 141/51
[2019-08-15] MEDS ORDERED: NEUTRA PHOS PACKET PO ONE (15:30)
--- NOTE | 2019-08-15 15:30 | NUR ---
DR BAILON NOTIFIED RE POTASSIUM AND PHOS LEVEL IS LOW STATED WILL SEE PATIENT.
--- NOTE | 2019-08-15 15:36 | NUR ---
DR BAILON HERE TO SEE PATIENT AWARE THAT PATIENT HAS A POLST FOR DNR/DNI WITH OKAY ORDER AND NOTED.
[2019-08-15 16:00] VITALS: BP 135/47
--- NOTE | 2019-08-15 20:00 | NUR ---
Received patient asleep. Patient shows no signs or symptoms of distress at this time. Vital signs stable. Borderline sinus lyn on tele monitor. Afebrile at this time. 22g left wrist patent and intact. Bed set to lowest position. Call light within reach. Bed set to lowest position. Will continue to monitor patient.
[2019-08-15] MEDS: DONEPEZIL 10 MG TABLET PO SCH (20:37)
[2019-08-15 21:17] VITALS: BP 142/44
[2019-08-15] MEDS: IV D5W 1000ML 1,000 ML IV PRN (21:52)
--- NOTE | 2019-08-15 22:07 | NUR ---
As per H/P notes from PCP, daughter requested patient to be full code on 08/11/2019. Spoke to Jaren Queen, daughter. Confirmed with daughter that patient is DNR status. Charge nurse, Grace, witnessed to daughter requesting for patient to be DNR. Will continue to monitor patient.
[2019-08-16 01:02] VITALS: BP 132/42
[2019-08-16 06:06] VITALS: BP 142/61
--- NOTE | 2019-08-16 06:30 | NUR ---
Patient shows no signs or symptoms of distress at this time. Vital signs stable. Afebrile throughout the night. O2 saturation 97% on 2L NC. Sinus Corbin on Tele monitor. Will endorse patient to day shift nurse in stable condition.
[2019-08-16 06:52] LABS: CREATININE 0.6 mg/dL (0.6-1.3); PHOSPHOROUS 3.3 mg/dL (2.5-4.9); POTASSIUM 3.3 mmol/L (3.5-5.1)
[2019-08-16] MEDS ORDERED: POTASSIUM CHLORIDE 20 MEQ POWDER PACKET GT ONE (09:00)
[2019-08-16] MEDS ORDERED: POTASSIUM CHLORIDE 20 MEQ POWDER PACKET PO ONE (09:00)
[2019-08-16] MEDS: ALBUTEROL SULFATE IH SCH ×3 (09:27→23:52)
[2019-08-16] MEDS: DOCUSATE SODIUM 100 MG CAPSULE PO SCH ×2 (09:27→20:15)
[2019-08-16] MEDS: DEXAMETHASONE 4 MG TABLET PO SCH (09:28)
[2019-08-16] MEDS: ASPIRIN 81 MG TAB.CHEW PO SCH (09:28)
[2019-08-16] MEDS: GABAPENTIN 300 MG CAPSULE PO SCH ×3 (09:29→20:15)
[2019-08-16] MEDS: AMLODIPINE 5 MG TABLET PO SCH ×2 (09:37→20:16)
[2019-08-16] MEDS: ENOXAPARIN SODIUM 40 MG/0.4 ML DISP.SYRIN SQ SCH (09:50)
[2019-08-16 11:30] VITALS: BP 117/45
[2019-08-16 16:00] VITALS: BP_SYST 145; BP_SYST 149; BP_DIAS 47; BP_DIAS 78
[2019-08-16] MEDS: IV D5W 1000ML 1,000 ML IV PRN (19:00)
--- NOTE | 2019-08-16 19:30 | NUR ---
PATIENT ALERT BUT FORGETFUL, NO SOB NO CHEST PAIN. PATIENT ON TELE MONITOR, SINUS RYTHM SINUS BRADYCARDIA. PATIENT WAS TURN AND REPOSITION, KEPT CLEAN AND DRY. CONT TO MONITOR.
[2019-08-16] MEDS: DONEPEZIL 10 MG TABLET PO SCH (20:15)
[2019-08-16 20:38] VITALS: BP 130/45
[2019-08-17] VITALS: BP 132/45
[2019-08-17 04:00] VITALS: BP 132/41
--- NOTE | 2019-08-17 06:10 | NUR ---
PATIENT ASLEEP BUT EASILY AROUSABLE, NO SOB NO CHEST PAIN. PATIENT CONTINUE ON TELE MONITOR SINUS MARITA. PATIENT AFEBRILE, NO S/S OF PAIN AT THIS TIME. PATIENT TURN AND REPOSITION EVERY TWO HOURS, REMAINS ON DROPLET PRECAUTION, CONT TO MONITOR.
--- NOTE | 2019-08-17 07:20 | NUR ---
RRESTING COMFORTABLY IN BED NO SS OF PAIN, DISTRESS OR FEVER. CONTINUE CURRENT TX PLAN . SR ON MONITOR
[2019-08-17] MEDS: ALBUTEROL SULFATE IH SCH ×2 (07:35→15:30)
[2019-08-17 07:36] LABS: BASOPHILS # (AUTO) 0.1 K/uL (0.0-8.0); BASOPHILS % (AUTO) 0.5 % (0.0-2.0); EOSINOPHILS % (AUTO) 0.1 % (0.0-7.0); HEMATOCRIT 31.8 % (31.2-41.9); HEMOGLOBIN 10.8 g/dL (10.9-14.3); LYMPHOCYTES # (AUTO) 0.8 K/uL (20.0-40.0); LYMPHOCYTES % (AUTO) 8.3 % (20.5-51.5); MEAN CORPUSCULAR HEMOGLOBIN 33.3 uug (24.7-32.8); MEAN CORPUSCULAR HGB CONC 34 g/dL (32.3-35.6); MONOCYTES # (AUTO) 0.5 K/uL (2.0-10.0); MONOCYTES % (AUTO) 4.5 % (0.0-11.0); NEUTROPHILS # (AUTO) 8.9 K/uL (1.8-8.9); NEUTROPHILS % (AUTO) 86.6 % (38.5-71.5); PLATELET COUNT (AUTO) 299 K/uL (179-408); RED BLOOD CELL COUNT(AUTO) 3.24 MIL/uL (3.63-4.92); WHITE BLOOD COUNT (AUTO) 10.2 K/uL (3.8-11.8)
[2019-08-17 07:48] LABS: CREATININE 0.6 mg/dL (0.6-1.3); MAGNESIUM 2.2 mg/dL (1.8-2.4); PHOSPHOROUS 3.1 mg/dL (2.5-4.9); POTASSIUM 3.7 mmol/L (3.5-5.1)
[2019-08-17] MEDS: DOCUSATE SODIUM 100 MG CAPSULE PO SCH ×2 (08:04→20:33)
[2019-08-17] MEDS: GABAPENTIN 300 MG CAPSULE PO SCH ×3 (08:04→20:33)
[2019-08-17] MEDS: ASPIRIN 81 MG TAB.CHEW PO SCH (08:04)
[2019-08-17] MEDS: DEXAMETHASONE 4 MG TABLET PO SCH (08:05)
[2019-08-17] MEDS: AMLODIPINE 5 MG TABLET PO SCH ×2 (08:06→20:43)
[2019-08-17] MEDS: ENOXAPARIN SODIUM 40 MG/0.4 ML DISP.SYRIN SQ SCH (08:11)
--- NOTE | 2019-08-17 10:09 | NUR ---
SEEN BY SPEECH THERAPIST SEE NOTES
[2019-08-17 11:37] VITALS: BP 140/49
[2019-08-17] MEDS: IV D5W 1000ML 1,000 ML IV PRN (13:20)
--- NOTE | 2019-08-17 15:39 | NUR ---
REMAINS AFEBRILE, SB ON THE 50'S.
[2019-08-17 16:00] VITALS: BP 146/56
[2019-08-17 20:00] VITALS: BP 147/53
[2019-08-17] MEDS: DONEPEZIL 10 MG TABLET PO SCH (20:33)
[2019-08-18] VITALS: BP 144/54
[2019-08-18 04:00] VITALS: BP 143/52
--- NOTE | 2019-08-18 06:55 | NUR ---
Patient slept well. On O2 at 3lpm via NC saturating at 93-94%. SB on tele monitor. Heplock on L wrist 22g intact and patent. Turned and repositioned. Oral care and suction done. Safety measures in place. Will endorse accordingly
[2019-08-18 07:04] LABS: BASOPHILS % (AUTO) 0.2 % (0.0-2.0); EOSINOPHILS # (AUTO) 0.1 K/uL (0.0-0.7); EOSINOPHILS % (AUTO) 1.1 % (0.0-7.0); HEMATOCRIT 31.5 % (31.2-41.9); HEMOGLOBIN 10.9 g/dL (10.9-14.3); LYMPHOCYTES # (AUTO) 1.6 K/uL (20.0-40.0); LYMPHOCYTES % (AUTO) 15.7 % (20.5-51.5); MEAN CORPUSCULAR HEMOGLOBIN 33.8 uug (24.7-32.8); MEAN CORPUSCULAR HGB CONC 35 g/dL (32.3-35.6); MEAN CORPUSCULAR VOLUME 97.6 fL (75.5-95.3); MONOCYTES # (AUTO) 0.7 K/uL (2.0-10.0); MONOCYTES % (AUTO) 6.5 % (0.0-11.0); NEUTROPHILS # (AUTO) 7.7 K/uL (1.8-8.9); NEUTROPHILS % (AUTO) 76.5 % (38.5-71.5); PLATELET COUNT (AUTO) 300 K/uL (179-408); RED BLOOD CELL COUNT(AUTO) 3.23 MIL/uL (3.63-4.92)
[2019-08-18 07:14] LABS: BILIRUBIN,TOTAL 0.5 mg/dL (0.2-1.0); CREATININE 0.7 mg/dL (0.6-1.3); PHOSPHOROUS 3.2 mg/dL (2.5-4.9); POTASSIUM 3.6 mmol/L (3.5-5.1); TOTAL PROTEIN, SERUM 6.6 g/dL (6.4-8.2)
[2019-08-18] MEDS: ALBUTEROL SULFATE IH SCH ×3 (07:35→23:14)
--- NOTE | 2019-08-18 07:45 | NUR ---
Received pt. in bed asleep, wakes up to touch. Nonverbal, confused. Unable to follow instructions. l No signs of distress. All needs met. Safety and fall prevention in place. bed locked and in low position. Call light in reach. will continue to monitor.
[2019-08-18 08:29] VITALS: BP 108/66
[2019-08-18] MEDS ORDERED: POTASSIUM CHLORIDE 20 MEQ POWDER PACKET PO ONE (09:15)
[2019-08-18] MEDS: GABAPENTIN 300 MG CAPSULE PO SCH ×3 (09:20→21:37)
[2019-08-18] MEDS: DOCUSATE SODIUM 100 MG CAPSULE PO SCH ×2 (09:20→21:38)
[2019-08-18] MEDS: AMLODIPINE 5 MG TABLET PO SCH ×2 (09:21→21:37)
[2019-08-18] MEDS: ASPIRIN 81 MG TAB.CHEW PO SCH (09:21)
[2019-08-18] MEDS: ENOXAPARIN SODIUM 40 MG/0.4 ML DISP.SYRIN SQ SCH (09:22)
[2019-08-18] MEDS: DEXAMETHASONE 4 MG TABLET PO SCH (09:24)
--- NOTE | 2019-08-18 10:12 | NUR ---
VENTOLIN INH GIVEN AT THIS TIME AND CHARTED
[2019-08-18 11:22] VITALS: BP 131/48
[2019-08-18 15:09] VITALS: BP 145/66
--- NOTE | 2019-08-18 18:26 | NUR ---
Pt. in bed asleep, wakes up to stimulation. nonverbal, confused, contracted to all extremities. No signs of distress throughout shift. All needs met. Safety and fall prevention in place. bed locked and in low position. Call light in reach. will report to oncoming shift.
--- NOTE | 2019-08-18 20:00 | NUR ---
Received patient resting in bed, arouses to touch. Patient is nonverbal. No signs of acute distress noted. No s/s of pain or SOB noted. Patient sounds congested. Suctioned patient. Patient is NSR on the monitor in the 70s. IV on left wrist is dislodged, will insert new one. DVT pumps intact. On contact/droplet precautions for COVID+ Safety measures initiated. Bed is low and locked, call light within reach. Will continue to monitor.
[2019-08-18 20:29] VITALS: BP 118/56
[2019-08-18] MEDS: DONEPEZIL 10 MG TABLET PO SCH (21:38)
[2019-08-19 00:24] VITALS: BP 149/65
--- NOTE | 2019-08-19 00:58 | NUR ---
Patient was saturating at 90-91% on 3L NC, asked RT Bobby to deep suction patient as she sounded more congested. Patient is now saturating at 96%.
[2019-08-19 04:32] VITALS: BP 130/49
--- NOTE | 2019-08-19 07:40 | NUR ---
Received pt in bed asleep, arousable to touch and light pain, non-verbal and follows cues. Decreased O2 3L to 2L NC saturating 96%, Dr. Fox made aware. IV on left hand 22g flushed and patent. Both upper extremities rigid. On telemetry SR. DVT pumps on. Bed locked in lowest position with siderails 2x up. Will monitor
[2019-08-19] MEDS: ALBUTEROL SULFATE IH SCH ×3 (07:54→23:03)
[2019-08-19 08:00] VITALS: BP 151/62
[2019-08-19] MEDS: GABAPENTIN 300 MG CAPSULE PO SCH ×3 (09:17→20:35)
[2019-08-19] MEDS: DOCUSATE SODIUM 100 MG CAPSULE PO SCH ×2 (09:18→20:35)
[2019-08-19] MEDS: AMLODIPINE 5 MG TABLET PO SCH ×2 (09:18→20:35)
[2019-08-19] MEDS: ASPIRIN 81 MG TAB.CHEW PO SCH (09:18)
[2019-08-19] MEDS: DEXAMETHASONE 4 MG TABLET PO SCH (09:19)
[2019-08-19] MEDS: ENOXAPARIN SODIUM 40 MG/0.4 ML DISP.SYRIN SQ SCH (09:35)
[2019-08-19 09:39] LABS: CARBON DIOXIDE 25 mmol/L (21-32); CHLORIDE 103 mmol/L (98-107); CREATININE 0.5 mg/dL (0.6-1.3); FERRITIN 280 ng/mL (8-252); GLUCOSE 129 mg/dL (74-106); LACTATE DEHYDROGENASE 338 U/L (81-234); MAGNESIUM 2.2 mg/dL (1.8-2.4); PHOSPHOROUS 3.8 mg/dL (2.5-4.9); UREA NITROGEN, BLOOD 24 mg/dL (7-18)
[2019-08-19 11:30] VITALS: BP 135/56
[2019-08-19 16:22] VITALS: BP 123/57
--- NOTE | 2019-08-19 18:58 | NUR ---
Asleep but arousable to touch and light pain. O2 kept at 2L with saturation at 92%. Able to take crushed medications with cues. No other issues at this time. Bed locked in lowest position with siderails 2x up.
--- NOTE | 2019-08-19 19:20 | NUR ---
Received patient lying in bed. Flat affect. Non-verbal. No signs or symptoms of pain or SOB. On O2 at 2LPM via NC. O2 sat at 93% HOB kept elevated. Aspiration precaution observed. IV site on left hand intact and patent. NSR on tele at 62/min. Droplet and contact precaution observed. Safety measure initiated and call yan within reached.
[2019-08-19 20:22] VITALS: BP 133/53
[2019-08-19] MEDS: DONEPEZIL 10 MG TABLET PO SCH (20:35)
[2019-08-20 00:08] VITALS: BP 124/51
[2019-08-20 04:26] VITALS: BP 132/55
--- NOTE | 2019-08-20 06:22 | NUR ---
Non-verbal. Appears comfortable. No signs or symptoms of pain or SOB. On O2 at 2LPM via NC. HOB kept elevated. Aspiration precaution maintained. IV site on left hand intact and patent. Sinus lyn on tele at 49/min. with 1st degree AV block. Droplet and contact precaution maintained. Safety measure maintained and call yan within reached.
[2019-08-20] MEDS: ALBUTEROL SULFATE IH SCH ×2 (06:39→15:37)
--- NOTE | 2019-08-20 07:30 | NUR ---
Received pt in bed asleep but arousable to touch and light pain, non-verbal with flat affect. On O2 @ 2L NC with no SOB or distress noted at this time. On tele SR 65. IV on left hand 22g flushed and patent. Aspiration precaution observed. Bed locked in lowest with siderails 2x up. Bed alarm on. Will monitor.
[2019-08-20 08:00] VITALS: BP 142/43
[2019-08-20] MEDS: GABAPENTIN 300 MG CAPSULE PO SCH ×2 (08:46→13:41)
[2019-08-20] MEDS: ASPIRIN 81 MG TAB.CHEW PO SCH (08:46)
[2019-08-20] MEDS: DOCUSATE SODIUM 100 MG CAPSULE PO SCH (08:47)
[2019-08-20] MEDS: DEXAMETHASONE 4 MG TABLET PO SCH (08:48)
[2019-08-20] MEDS: AMLODIPINE 5 MG TABLET PO SCH (08:48)
[2019-08-20 11:47] VITALS: BP 127/54
[2019-08-20] MEDS ORDERED: AMLO5TAB9 PO (12:19)
--- NOTE | 2019-08-20 15:02 | NUR ---
Patient has been asleep mostly, arousable to name and touch. Follows cues when asked to swallow food and medication. No SOB or distress noted at this time.
[2019-08-20 15:15] VITALS: BP 120/60
--- NOTE | 2019-08-20 18:16 | NUR ---
Pt picked up by ambulance personnel, report given to Luis Enrique. Pt unable to sign DC papers and forms, and belongings list d/t mental status. Co-signed with another nurse. DC papers given to Luis Enrique. Pt stable and asleep throughout shift but arousable to name and touch. O2 @ 2L sat 98%, no SOB or distress noted at this time. IV on left hand 22g intact since Dr. Harmon continued IV Zosyn., flushed and patent. Report was given to Ira LOYOLA from [facility] ([phone]).
[2019-08-21] MEDS ORDERED: DEXAMETHASONE 4 MG TABLET PO SCH (09:00)
== END 2019-08-20 18:50 | DRG 177 ==
LOC: ER 12:43 → TELE3 15:58
PROVIDERS: ADMIT Internal Medicine; ATTEND Internal Medicine
DX: U07.1 COVID-19 (principal); J12.89 Other viral pneumonia; J96.01 Acute respiratory failure with hypoxia; G92 Toxic encephalopathy; E87.0 Hyperosmolality and hypernatremia; F02.80 Dementia in other diseases classified elsewhere, unspecified severity, without behavioral disturbance, psychotic disturbance, mood disturbance, and anxiety; G30.9 Alzheimer's disease, unspecified; E87.6 Hypokalemia; I10 Essential (primary) hypertension; Z86.718 Personal history of other venous thrombosis and embolism; Z86.73 Personal history of transient ischemic attack (TIA), and cerebral infarction without residual deficits; G62.9 Polyneuropathy, unspecified; D50.9 Iron deficiency anemia, unspecified; F41.9 Anxiety disorder, unspecified; T44.7X5A Adverse effect of beta-adrenoreceptor antagonists, initial encounter; Y92.89 Other specified places as the place of occurrence of the external cause; I49.5 Sick sinus syndrome; Z66 Do not resuscitate; E88.81 Metabolic syndrome and other insulin resistance; I49.3 Ventricular premature depolarization; I73.9 Peripheral vascular disease, unspecified
CPT/HCPCS: 36415; 36600; 70030-TC; 71045; 83605; 83615; 83735; 84100; 85025; 86140; 86900; 86901; 87040; 87077; 93005; 94640; A4217; A4663; C1758; G0378; J1100; J1650; J2543; J3480; J3535; J7040; J7050; J7060; J7070; J8540; U0003-CS